=== PATIENT | male | born 1980 | race Caucasian/White ===

== ENCOUNTER 2021-03-17 18:11 | Inpatient (IN) | payer OTHER ==
[2021-03-17 19:39] VITALS: BMI 24.3
[2021-03-17] MEDS ORDERED: BISMUTH SUBSALICYLATE 524 MG/30 ML PO PRN (21:47)
[2021-03-17] MEDS ORDERED: NICOTINE POLACRILEX 2 MG GUM BUC PRN (21:47)
[2021-03-17] MEDS ORDERED: MENTHOL/PHENOL 1 EACH UD MM PRN (21:47)
[2021-03-17] MEDS ORDERED: MAG HYDROX/AL HYDROX/SIMETH 30 ML UNIT-DOSE CUP PO PRN (21:47)
[2021-03-17] MEDS ORDERED: IBUPROFEN 400 MG TABLET (FP) PO PRN (21:47)
[2021-03-17] MEDS ORDERED: ONDANSETRON *ODT* 4 MG TABLET SL PRN (21:47)
[2021-03-17] MEDS ORDERED: MAGNESIUM CITRATE 300 ML BOTTLE PO PRN (21:47)
[2021-03-17] MEDS ORDERED: MAGNESIUM HYDROX 2400MG/30ML ORAL SUSPENSION 30 ML CUP PO PRN (21:47)
[2021-03-17] MEDS ORDERED: ACETAMINOPHEN 325 MG TABLET (FP) PO PRN ×2 (21:47)
[2021-03-17] MEDS: MELATONIN 5 MG TABLETS PO SCH (23:45)
[2021-03-17] MEDS: hydrOXYzine PAMOATE 25 MG CAPSULE (FP) PO SCH (23:45)
[2021-03-17] MEDS: THIAMINE HCL 100 MG TABLET (FP) PO SCH (23:46)
[2021-03-17] MEDS: METHOCARBAMOL 500 MG TABLET PO PRN (23:47)
[2021-03-18] MEDS: hydrOXYzine PAMOATE 25 MG CAPSULE (FP) PO SCH (06:58)
[2021-03-18] MEDS ORDERED: diazePAM 5 MG TABLET PO PRN (08:36)
[2021-03-18] MEDS ORDERED: cloNIDine HCL 0.1 MG TABLET PO PRN (08:36)
[2021-03-18] MEDS ORDERED: METHADONE HCL 10 MG TABLET (FOR DETOX USE ONLY) PO ONE (09:00)
[2021-03-18] MEDS: diazePAM 5 MG TABLET PO SCH ×3 (10:46→22:13)
[2021-03-18] MEDS: PRENATAL VITAMINS W/ FOLIC ACID TABLET (FP) PO SCH (10:47)
[2021-03-18 13:27] LABS: HEMATOCRIT 35.7 % (35.4-49); HEMOGLOBIN 11.9 GM/dL (11.7-16.9); MCH 29.4 pg (25.7-33.7); MCHC 33.2 g/dl (32.0-35.9); MEAN CELL VOLUME 88.5 fl (80-96); PLATELET COUNT 247 10^3/uL (134-434); RBC 4.03 M/mm3 (4.00-5.60); RDW 13.5 % (11.9-15.9); WHITE BLOOD COUNT 5.6 K/mm3 (4.0-10.0)
[2021-03-18 13:31] LABS: ALBUMIN 3.4 g/dl (3.4-5.0); BLOOD UREA NITROGEN 17.9 mg/dL (7-18); CALCIUM 8.7 mg/dL (8.5-10.1)
[2021-03-18 13:35] LABS: CREATININE 0.8 mg/dL (0.55-1.3)
[2021-03-18 13:36] LABS: BILIRUBIN,TOTAL 0.2 mg/dL (0.2-1); TOT PROT 6.7 g/dl (6.4-8.2)
[2021-03-18] MEDS ORDERED: LIDOCAINE VISCOUS 2% ORAL/TOP 20 ML UNIT-DOSE CUP MM PRN (14:10)
[2021-03-18] MEDS ORDERED: traZODone HCL 100 MG TABLET (FP) PO SCH (22:00)
[2021-03-18] MEDS: MIRTAZAPINE 15 MG TABLET (FP) PO SCH (22:12)
[2021-03-18] MEDS: MELATONIN 5 MG TABLETS PO SCH (22:12)
[2021-03-18] MEDS: THIAMINE HCL 100 MG TABLET (FP) PO SCH (22:12)
[2021-03-19] MEDS: diazePAM 5 MG TABLET PO SCH ×4 (06:31→22:18)
[2021-03-19] MEDS ORDERED: METHADONE HCL 10 MG TABLET (FOR DETOX USE ONLY) ONE (09:26)
[2021-03-19] MEDS ORDERED: METHADONE HCL 5 MG TABLET (FOR DETOX USE ONLY) ONE (09:27)
[2021-03-19] MEDS ORDERED: METHADONE (DETOX) 20 MG, METHADONE (DETOX) 5 MG PO ONE (10:00)
[2021-03-19] MEDS: PRENATAL VITAMINS W/ FOLIC ACID TABLET (FP) PO SCH (10:08)
[2021-03-19] MEDS: METHOCARBAMOL 500 MG TABLET PO PRN (10:09)
[2021-03-19] MEDS: hydrOXYzine PAMOATE 25 MG CAPSULE (FP) PO PRN (10:09)
[2021-03-19] MEDS: MELATONIN 5 MG TABLETS PO SCH (22:17)
[2021-03-19] MEDS: MIRTAZAPINE 15 MG TABLET (FP) PO SCH (22:17)
[2021-03-19] MEDS: THIAMINE HCL 100 MG TABLET (FP) PO SCH (22:18)
[2021-03-20] MEDS: diazePAM 5 MG TABLET PO SCH ×3 (07:13→22:10)
[2021-03-20] MEDS ORDERED: METHADONE HCL 10 MG TABLET (FOR DETOX USE ONLY) PO ONE (10:00)
[2021-03-20] MEDS: PRENATAL VITAMINS W/ FOLIC ACID TABLET (FP) PO SCH (10:39)
[2021-03-20] MEDS: hydrOXYzine PAMOATE 25 MG CAPSULE (FP) PO PRN (10:41)
[2021-03-20] MEDS: THIAMINE HCL 100 MG TABLET (FP) PO SCH (22:09)
[2021-03-20] MEDS: MELATONIN 5 MG TABLETS PO SCH (22:09)
[2021-03-20] MEDS: MIRTAZAPINE 15 MG TABLET (FP) PO SCH (22:09)
[2021-03-21] MEDS: diazePAM 5 MG TABLET PO SCH ×2 (07:22→17:50)
[2021-03-21] MEDS ORDERED: METHADONE (DETOX) 10 MG, METHADONE (DETOX) 5 MG PO ONE (10:00)
[2021-03-21] MEDS: PRENATAL VITAMINS W/ FOLIC ACID TABLET (FP) PO SCH (10:14)
[2021-03-21] MEDS: hydrOXYzine PAMOATE 25 MG CAPSULE (FP) PO PRN ×2 (14:14→23:57)
[2021-03-21] MEDS: METHOCARBAMOL 500 MG TABLET PO PRN ×2 (14:14→23:56)
[2021-03-21] MEDS: THIAMINE HCL 100 MG TABLET (FP) PO SCH (22:19)
[2021-03-21] MEDS: MIRTAZAPINE 15 MG TABLET (FP) PO SCH (22:19)
[2021-03-21] MEDS: MELATONIN 5 MG TABLETS PO SCH (23:04)
[2021-03-22] MEDS ORDERED: diazePAM 5 MG TABLET PO ONE (06:00)
[2021-03-22] MEDS ORDERED: METHADONE HCL 10 MG TABLET (FOR DETOX USE ONLY) PO ONE (10:00)
[2021-03-22] MEDS: PRENATAL VITAMINS W/ FOLIC ACID TABLET (FP) PO SCH (10:17)
[2021-03-22] MEDS: MIRTAZAPINE 15 MG TABLET (FP) PO SCH (21:57)
[2021-03-22] MEDS: MELATONIN 5 MG TABLETS PO SCH (21:58)
[2021-03-22] MEDS: THIAMINE HCL 100 MG TABLET (FP) PO SCH (21:59)
[2021-03-22] MEDS: hydrOXYzine PAMOATE 25 MG CAPSULE (FP) PO PRN (21:59)
[2021-03-23] MEDS ORDERED: METHADONE HCL 5 MG TABLET (FOR DETOX USE ONLY) PO ONE (06:00)
[2021-03-23 09:33] VITALS: BP 102/69; PULSE 86; TEMP 96.9
== END 2021-03-23 09:20 | disposition home or self-care (01) | DRG 773 ==
LOC: YASAS 18:11 → Y3N 22:38 → UNDOADMIN 22:38 → Y3N 03-22 21:50
PROVIDERS: ADMIT Allergy & Immunology; ATTEND Allergy & Immunology
PROC: HZ2ZZZZ Detoxification Services for Substance Abuse Treatment (ICD-10-PCS; principal; 2021-03-17)
DX: F11.23 Opioid dependence with withdrawal (principal); F10.20 Alcohol dependence, uncomplicated; F14.10 Cocaine abuse, uncomplicated; F12.10 Cannabis abuse, uncomplicated; F17.210 Nicotine dependence, cigarettes, uncomplicated; F19.24 Other psychoactive substance dependence with psychoactive substance-induced mood disorder; G47.00 Insomnia, unspecified; Z91.013 Allergy to seafood; Z59.0 Homelessness
CPT/HCPCS: 36415; 80053; 85027; 86780; C9803; U0003; U0005